=== PATIENT | male | born 1970 | race Caucasian/White ===

== ENCOUNTER → 2017-12-06 08:11 | Outpatient (CLI) | payer OTHER, SELFPAY ==
[2017-12-06 13:02] LABS: Absolute Lymphocyte Count 2.67 X10^3/ul (0.83-4.51); Absolute Neutrophil Count 3.5 X10^3/uL (2.0-7.7); Basophil# 0.05 X10^3/uL; Basophil% 0.7 % (0-1); Eosinophil# 0.18 X10^3/uL; Eosinophils% 2.6 % (0-5); Hematocrit 49.9 % (40-54); Hemoglobin 16.5 g/dl (13.0-16.5); Lymphocyte # 2.67 X10^3/ul (4.0); Mean Corp Hgb Conc 33.1 g/gl (32-36); Mean Corpuscular Hgb 32.7 pg (27.0-32.0); Mean Platelet Vol. 10.2 fl (6.2-12.0); Monocyte# 0.58 X10^3/uL; Monocyte% 8.3 % (0-10); Neutrophil # 3.54 X10^3/uL (2.7-7.7); Neutrophil % 50.3 % (47-70); Platelet Count 220 K/mm3 (150-450); RBC Distribution Width CV 13.7 % (11.6-14.6); RBC Distribution Width SD 49.3 fl (35.1-43.9); Red Blood Count 5.04 M/mm3 (4.6-6.2)
[2017-12-06 13:05] LABS: POSITIVE COUNT NO; POSITIVE DIFFERENTIAL NO; POSITIVE MORPHOLOGY NO
[2017-12-06 14:36] LABS: AST(SGOT) 29 U/L (15-37); Alanine Aminotransfer ALT/SGPT 54 U/L (16-61); Albumin, Serum 4.1 g/dL (3.2-5.0); Alkaline Phosphatase 59 U/L (45-117); Anion Gap 8 (5-15); BUN 12 mg/dL (7-18); BUN/Creat Ratio 10.7 RATIO (10-20); Calcium,Total 8.9 mg/dL (8.5-10.1); Chloride 104 mmol/L (98-107); Cholesterol 143 mg/dL (200); Creatinine, Serum 1.12 mg/dL (0.70-1.30); EST Glomerular Filtration Rate 75 mL/min (>60); Est Glom Filt Rate - Afr Amer 91 mL/min (>60); Glucose 96 mg/dL (74-106); High Density Lipoprotein 29 mg/dL; Potassium 3.7 mmol/L (3.5-5.1); Prolactin 5.4 ng/mL; Protein, Total 8.1 g/dL (6.4-8.2); Sodium Level 140 mmol/L (136-145); Thyroid Stim Hormone (TSH) 6.66 uIU/mL (0.358-3.74); Triglycerides 166 mg/dL; Very Low Density Lipoprotein 33 mg/dL (5-40)
[2017-12-10 09:38] LABS: Testosterone, % Free 1.94 % (1.50-4.20); Testosterone, Free 5.63 ng/dL (5.00-21.00)
[2017-12-10 11:07] LABS: Testosterone, Total 290 ng/dL (264-916); Transferrin 258 mg/dL (200-370)
== END ==
PROVIDERS: Family Provider Family Medicine; PCP Family Medicine; Visit Provider Family Medicine
DX: I10 Essential (primary) hypertension (principal); E29.1 Testicular hypofunction; E03.9 Hypothyroidism, unspecified
CPT/HCPCS: 36415; 80053; 80061; 84146; 84402; 84403; 84439; 84443; 84466; 85025

== ENCOUNTER → 2018-02-23 09:51 | Outpatient (CLI) | payer OTHER, SELFPAY ==
[2018-02-23 13:01] LABS: T4 Free Direct 1.41 ng/dL (0.76-1.46); Thyroid Stim Hormone (TSH) 2.02 uIU/mL (0.358-3.74)
== END ==
PROVIDERS: Family Provider Family Medicine; PCP Family Medicine; Visit Provider Family Medicine
DX: E03.9 Hypothyroidism, unspecified (principal)
CPT/HCPCS: 36415; 84439; 84443

== ENCOUNTER 2018-03-15 06:24 | Day surgery (SDC) | payer OTHER, SELFPAY ==
--- NOTE | 2018-03-11 08:00 | SOF_PTH ---
PATIENT: STUART VILLAVICENCIO LOC: [facility] [place] U#:[id number] AGE/SX: 47/M ROOM: RE03/15/[address]: Dr. Noé Coy MD : 1970 BED: DIS: 03/15/2018 SPEC #: [id number] RECD: 03/15/18 11:08 STATUS: NASIM MIRANDA #: [id number] JACKIE: 03/11/18 08:[address]: Noé Coy DEPT: SURGICAL PATHOLOGY RECD BY: Casimiro Kim ENTERED: 03/15/18 13:08 SP TYPE: SOFT TISS OTHR DR: Dr. Devan Alba, DO Tissues: A - Soft tissues, NOS B - Soft tissues, NOS C - Soft tissues, NOS D - Soft tissues, NOS Procedures: Surgery Specimen Level IV HEADER OPERATION: Excision painful soft tissue masses right posterior neck PRE-OP DIAGNOSIS: Painful soft tissue masses left lateral back; right posterior neck; left posterior auricular; left posterior neck TISSUE SUBMITTED: A ? Soft tissue mass right lateral back, B ? Soft tissue mass left posterior auricular, C - Soft tissue mass right posterior neck, D - Soft tissue mass left posterior neck MICROSCOPIC DIAGNOSIS A. 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 B. Soft tissue mass left posterior auricular, excision: Consistent with spindle cell lipoma. C. Soft tissue mass right posterior neck, excision: Consistent with spindle cell/pleomorphic lipoma. D. Soft tissue mass left posterior neck, excision: Mature adipose tissue, consistent with lipoma. SJ:timothy 03/16/18 COMMENT Please make reference to previous specimen ([id number]), A ? right posterior neck soft tissue mass with diagnosis of consistent with lipoma, B ? upper mid back soft tissue mass, biopsy with diagnosis of consistent with fibrolipoma, C ? left postauricular area soft tissue mass, biopsy with diagnosis of consistent with spindle cell lipoma, D ? left shoulder soft tissue mass, biopsy with diagnosis of consistent with spindle cell lipoma and E ? right shoulder soft tissue mass cluster x2, biopsy with diagnosis of spindle cell lipoma. Case has been reviewed in consultation with Dr. Holley who concurs with the above diagnosis. IDC:AM MICROSCOPIC DESCRIPTION Slides are reviewed. GROSS DESCRIPTION A - Received in fixative is one container labeled with the patient's name and designated soft tissue mass right lateral back. The specimen consists of two pieces of yellow adipose tissue measuring 4.5 x 3 x 2 cm and 2 x 2 x 1 cm. Sections reveal yellow adipose cut surfaces mixed with focal fibrous area without area of hemorrhage, necrosis and cystic degeneration. Hygiene Assistant sections are submitted in five cassettes as follows: 1 ? smaller piece, 2-5 ? larger piece. B - Received in fixative is one container labeled with the patient's name and designated soft tissue mass left posterior auricle. The specimen consists of two pieces of yellow adipose tissue measuring 2.5 x 2 x 2 cm and 1.5 x 1 x 0.3 cm. Sections reveal yellow adipose cut surfaces without area of hemorrhage, necrosis or cystic degeneration. The entire specimen is submitted in two cassettes. C - Received in fixative is one container labeled with the patient's name and designated soft tissue mass right posterior neck. The specimen consists of multiple pieces of yellow adipose tissue measuring in aggregate 14 x 11 x 4 cm. Sections reveal yellow adipose cut surfaces mixed with focal fibrous area without area of hemorrhage, necrosis or cystic degeneration. Hygiene Assistant sections are submitted in six cassettes. D - Received in fixative is one container labeled with the patient's name and designated soft tissue mass left posterior neck. The specimen consists of a lobulated piece of yellow adipose tissue measuring 10 x 6 x 3.5 cm. The external surface is inked. Sections reveal yellow adipose cut surfaces without areas of hemorrhage, necrosis or cystic degeneration. Hygiene Assistant sections are submitted in four cassettes. / SJ:timothy 03/15/18 TC:1 CPT: 18513 x4
[2018-03-15] VITALS (7 sets, daily range): BP systolic 90–150; BP diastolic 23–86; PULSE 68–100; RESP 16–20; TEMP 35.5–36.6; O2SAT 93–99; BMI 40.9
--- NOTE | 2018-03-15 07:41 | PCM.HP.BLA ---
History and Physical Date of Admission: 03/15/18 HISTORY OF PRESENT ILLNESS This is a 47-year-old gentleman who presents with painful soft tissue masses on his right lower lateral back, his posterior neck, and his chest wall that have increased in size over the last several months. He denies any trauma to these areas. He denies any fever. He denies any bleeding. He denies any recent infection. He presents at this time for further evaluation and treatment regarding these enlarging, painful, soft tissue masses. He had some painful soft tissue masses excised from his upper midback by the posterior neck, right shoulder, left shoulder, right posterior neck, and left postauricular area in 11/16. PAST MEDICAL HISTORY Gallstones High BP Arthritis Cdiff colitis. 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 Painful lipoma right posterior neck. Painful spindle cell lipoma left postauricular area. PAST SURGICAL HISTORY Knee Surgery 1985 Gallbladder 2009 Excision 3 cm painful soft tissue mass left postauricular area and excision 3 cm painful soft tissue mass right posterior neck and excision 2 cm painful soft tissue mass left shoulder and excision 2 cm painful soft tissue mass cluster x2 right shoulder and excision 1 cm painful soft tissue mass upper midback by posterior neck - 11/10/12 MEDICATIONS Amlodipine. HCTZ. Lisinopril. Niacin. ALLERGIES Penicillin. Cleocin. FAMILY HISTORY Father - Heart Disease and Hypertension and High Cholesterol. Mother - Hypertension. Negative for skin cancer. SOCIAL HISTORY Patient has never smoked. Alcohol Use - yes patient does not use aspirin. Patient does not use ibuprofen. REVIEW OF SYSTEMS General - Denies fever, fatigue, and weight loss. Eyes - Denies eye pain. Patient denies glaucoma. Patient denies cataracts. ENT - Denies nasal congestion and sore throat. Patient has chronic sinus problems. CV - Denies chest pain or discomfort, fatigue, lightheadedness, and shortness of breath with exertion. Patient has hypertension. Resp - Denies cough and shortness of breath. GI - Denies nausea, vomiting, diarrhea, and constipation. - Denies hematuria and urinary frequency. MS - Denies joint pain, back pain, stiffness, muscle weakness. Has arthritis. Derm - Denies skin cancer. The patient has painful enlarging soft tissue masses on his left posterior neck, right posterior neck, right lower lateral back, left chest wall, and right chest wall. Neuro - Denies poor balance, headaches, and weakness. Psych - Denies anxiety and depression. Endo - Denies excessive urination and excessive thirst. Heme - Denies abnormal bruising and bleeding. PHYSICAL EXAMINATION General - well developed, well nourished, in no acute distress. HEENT - PERRL/EOM intact. Throat clear. Neck - no thyromegaly, or abnormal cervical nodes. On the right posterior neck is a 9 cm soft tissue mass. It is tender to palpation. It is mobile. There is no ulceration. There is no evidence of infection. On the left posterior neck is a 6 cm soft tissue mass. It is tender to palpation. It is mobile. There is no ulceration. There is no evidence of infection. On the left postauricular/posterior neck area is a 3 cm soft tissue mass. It is tender to palpation. It is mobile. There is no ulceration. Chest wall - On the left chest wall is a 4 cm soft tissue mass. Mild tenderness to palpation. It is mobile. There is no ulceration. No evidence of infection. On the right chest wall is a 4 cm soft tissue mass. Mild tenderness to palpation. It is mobile. No ulceration. No evidence of infection. Lungs - clear bilaterally to auscultation. Heart - Regular rate and rhythm. Msk - On the right lower lateral back is a 6 cm soft tissue mass. It is mobile. It is tender to palpation. No evidence of ulceration. No evidence of infection. Pulses - Radial pulses are palpable. Extremities - no clubbing, cyanosis, edema, or deformity noted with normal full range of motion of all joints. Neurologic -cranial nerves II-XII grossly intact. Skin - No rashes. Cervical Nodes - no significant adenopathy. Axillary Nodes - no significant adenopathy. Psych - alert and cooperative; normal mood and affect; normal attention span and concentration ASSESSMENT 1. 9 cm painful recurrent soft tissue mass right posterior neck. 2. 6 cm painful soft tissue mass left posterior neck. 3. 6 cm painful soft tissue mass right lower lateral back. 4. 3 cm painful soft tissue mass left postauricular/posterior neck area. 5. 4 cm painful soft tissue mass left chest wall. 6. 4 cm painful soft tissue mass right chest wall. PLAN I recommend excision of this painful soft tissue mass, which we can do on an outpatient basis under general anesthesia. We will send the tissue to pathology for analysis to rule out carcinoma. Will excise these soft tissue masses in stages. I don't want to be turning the patient during the surgery which can increase risk for bleeding issues which would lengthen the procedure. So will do the lower lateral back and posterior neck soft tissue masses first. After healing has occurred, can proceed with excising the soft tissue masses on his chest wall. The patient was informed of the risks and complications of the procedure including alternatives to surgery. These were discussed with him personally. He voices understanding and wishes to proceed. Some of the risks and complications were included in a form from the [employer]. Depending on the size of the defect after the excision, a drain may be necessary.
[2018-03-15] MEDS: levoFLOXacin IV 500 MG/100 ML BAG 100 MG IV (08:13)
--- NOTE | 2018-03-15 10:19 | PCM.IMDPSTOP ---
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 Pre-Operative Diagnosis: 1. 9 cm painful recurrent soft tissue mass right posterior neck. 2. 6 cm painful soft tissue mass left posterior neck. 3. 6 cm painful soft tissue mass right lower lateral back. 4. 3 cm painful soft tissue mass left postauricular/posterior neck area. Post-Operative Diagnosis: Same. Surgery/Procedure Performed:: 1. Excision 9 cm painful recurrent soft tissue mass right posterior neck with 6.5 cm layered closure. 2. Excision 6 cm painful soft tissue mass left posterior neck with 5 cm layered closure. 3. Excision 6 cm painful soft tissue mass right lower lateral back with 5.5 cm layered closure. 4. Excision 3 cm painful soft tissue mass left postauricular/posterior neck area with 2.5 cm layered closure. Description of Surgical Findings:: This is a 47-year-old gentleman who presents with painful soft tissue masses on his right lower lateral back, his posterior neck, and his chest wall that have increased in size over the last several months. He denies any trauma to these areas. He denies any fever. He denies any bleeding. He denies any recent infection. He presents at this time for further evaluation and treatment regarding these enlarging, painful, soft tissue masses. He had some painful soft tissue masses excised from his upper midback by the posterior neck, right shoulder, left shoulder, right posterior neck, and left postauricular area in 11/16. Today the patient underwent excision 9 cm painful recurrent soft tissue mass right posterior neck with 6.5 cm layered closure and excision 6 cm painful soft tissue mass left posterior neck with 5 cm layered closure and excision 6 cm painful soft tissue mass right lower lateral back with 5.5 cm layered closure and excision 3 cm painful soft tissue mass left postauricular/posterior neck area with 2.5 cm layered closure. I used Marleni absorbable hemostat (I used 2 vials). Reference Number - [id number]. Lot Number - [id number]. Expiration - December 01, 2022. Estimated Blood Loss: 200 ml. Specimen's removed: 1. Painful recurrent soft tissue mass right posterior neck to Pathology. 2. Painful soft tissue mass left posterior neck to Pathology. 3. Painful soft tissue mass right lower lateral back to Pathology. 4. Painful soft tissue mass left postauricular/posterior neck area to Pathology. Drains: Niraj. Type of Anesthesia:: General - Admit VTE Documentation VTE Present on Admission: No VTE Mechan Device Prophylaxis: SCD's VTE Pharm Prophylaxis ordered?: No
[2018-03-15] MEDS: Mupirocin Ointment 22gm Tube 1 APPLIC (10:26)
--- NOTE | 2018-03-15 10:28 | OP.PN_ITS ---
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 Pre-Operative Diagnosis: 1. 9 cm painful recurrent soft tissue mass right posterior neck. 2. 6 cm painful soft tissue mass left posterior neck. 3. 6 cm painful soft tissue mass right lower lateral back. 4. 3 cm painful soft tissue mass left postauricular/posterior neck area. Post-Operative Diagnosis: Same. Surgery/Procedure Performed:: 1. Excision 9 cm painful recurrent soft tissue mass right posterior neck with 6.5 cm layered closure. 2. Excision 6 cm painful soft tissue mass left posterior neck with 5 cm layered closure. 3. Excision 6 cm painful soft tissue mass right lower lateral back with 5.5 cm layered closure. 4. Excision 3 cm painful soft tissue mass left postauricular/ posterior neck area with 2.5 cm layered closure. Description of Surgical Findings:: This is a 47-year-old gentleman who presents with painful soft tissue masses on his right lower lateral back, his posterior neck, and his chest wall that have increased in size over the last several months. He denies any trauma to these areas. He denies any fever. He denies any bleeding. He denies any recent infection. He presents at this time for further evaluation and treatment regarding these enlarging, painful, soft tissue masses. He had some painful soft tissue masses excised from his upper midback by the posterior neck, right shoulder, left shoulder, right posterior neck, and left postauricular area in . Today the patient underwent excision 9 cm painful recurrent soft tissue mass right posterior neck with 6.5 cm layered closure and excision 6 cm painful soft tissue mass left posterior neck with 5 cm layered closure and excision 6 cm painful soft tissue mass right lower lateral back with 5.5 cm layered closure and excision 3 cm painful soft tissue mass left postauricular/posterior neck area with 2.5 cm layered closure. I used Marleni absorbable hemostat (I used 2 vials). Reference Number - [id number]. Lot Number - [id number]. Expiration - December 01, 2022. Estimated Blood Loss: 200 ml. Specimen's removed: 1. Painful recurrent soft tissue mass right posterior neck to Pathology. 2. Painful soft tissue mass left posterior neck to Pathology. 3. Painful soft tissue mass right lower lateral back to Pathology. 4. Painful soft tissue mass left postauricular/posterior neck area to Pathology. Drains: Niraj. Type of Anesthesia:: General - Admit VTE Documentation VTE Present on Admission: No VTE Mechan Device Prophylaxis: SCD's VTE Pharm Prophylaxis ordered?: No
--- NOTE | 2018-03-15 10:32 | PCM.DC ---
You will use the following diet at home:: No restrictions Discharge Activity: May not drive while taking narcotic pain medications., May Not Shower - until drain is removed., - - no heavy lifting. head elevated. Return to work on:: 03/29/18 - tentative May shower in (days): 7 - after drain is removed in the office. May resume sexual activity in: 10-14 days Weight Bearing Status: Weight bearing as tolerated Keep extremity elevated above heart level: - - elevate head. Call your doctor if your incision/area has: Continuous Slow Oozing, Sudden Increased Bleeding, Increased Pain/ Swelling, Increased Redness, Foul Smelling Discharge, Swelling at the incision site Call your doctor if you observe: Fever of 101 or Higher, Coldness, Increased Pain, Shortness of breath, Chest pain, Calf discomfort, Uncontrolled pain Suture Line Care: - - after dressing removed in two days, apply antibiotic ointment to suture line daily. Change Dressing in (Days):: 2 - then dry dressings daily Cleanse incision/area with: - - may get incisions wet in the shower after the drain is removed in the office. Drain: Suction - zara drain to bulb suction. empty and record output daily. Allergies/Adverse Reactions: Allergies Penicillins Allergy (Severe, Verified 11/03/17 08:52) critical clindamycin [From Cleocin] Adverse Reaction (Intermediate, Verified 01/31/18 13:07) colitis Medications to take at Discharge amlodipine 5 mg tablet 5 mg PO QDAY 11/02/17 hydrochlorothiazide 12.5 mg tablet 12.5 mg PO QDAY 11/02/17 lisinopril 20 mg tablet 20 mg PO BID tab 11/02/17 niacin 500 mg tablet 500 mg PO QDAY 11/02/17 Diazepam [Valium] 5 mg PO 4X/DAY PRN PRN #20 tab 03/15/18 Oxycodone HCl/Acetaminophen [Percocet 5/325] 1 - 2 tab PO 4X/DAY PRN PRN 5 Days #40 tab 03/15/18 Thyroxine 100 meq PO DAILY 03/15/18 levoFLOXacin tablet [Levaquin tablet] 500 mg PO DAILY #10 tab 03/15/18 The following prescriptions were given: Diazepam [Valium] 5 mg PO 4X/DAY PRN PRN #20 tab PRN Reason: Spasms levoFLOXacin tablet [Levaquin tablet] 500 mg PO DAILY #10 tab Oxycodone HCl/Acetaminophen [Percocet 5/325] 1 - 2 tab PO 4X/DAY PRN PRN 5 Days #40 tab PRN Reason: Pain Primary Care Physician: Devan Alba DO [Primary Care Provider] - Please Follow Up With: Noé Coy MD When: one week. call [phone] for appt. Proposed Discharge Date: 03/15/18
--- NOTE | 2018-03-15 10:36 | DCINST_ITS ---
You will use the following diet at home:: No restrictions Discharge Activity: May not drive while taking narcotic pain medications., May Not Shower - until drain is removed., - - no heavy lifting. head elevated. Return to work on:: 03/29/18 - tentative May shower in (days): 7 - after drain is removed in the office. May resume sexual activity in: 10-14 days Weight Bearing Status: Weight bearing as tolerated Keep extremity elevated above heart level: - - elevate head. Call your doctor if your incision/area has: Continuous Slow Oozing, Sudden Increased Bleeding, Increased Pain/ Swelling, Increased Redness, Foul Smelling Discharge, Swelling at the incision site Call your doctor if you observe: Fever of 101 or Higher, Coldness, Increased Pain, Shortness of breath, Chest pain, Calf discomfort, Uncontrolled pain Suture Line Care: - - after dressing removed in two days, apply antibiotic ointment to suture line daily. Change Dressing in (Days):: 2 - then dry dressings daily Cleanse incision/area with: - - may get incisions wet in the shower after the drain is removed in the office. Drain: Suction - zara drain to bulb suction. empty and record output daily. Allergies/Adverse Reactions: Allergies Penicillins Allergy (Severe, Verified 11/03/17 08:52) critical clindamycin [From Cleocin] Adverse Reaction (Intermediate, Verified 01/31/18 13: 07) colitis Medications to take at Discharge amlodipine 5 mg tablet 5 mg PO QDAY 11/02/17 hydrochlorothiazide 12.5 mg tablet 12.5 mg PO QDAY 11/02/17 lisinopril 20 mg tablet 20 mg PO BID tab 11/02/17 niacin 500 mg tablet 500 mg PO QDAY 11/02/17 Diazepam [Valium] 5 mg PO 4X/DAY PRN PRN #20 tab 03/15/18 Oxycodone HCl/Acetaminophen [Percocet 5/325] 1 - 2 tab PO 4X/DAY PRN PRN 5 Days #40 tab 03/15/18 Thyroxine 100 meq PO DAILY 03/15/18 levoFLOXacin tablet [Levaquin tablet] 500 mg PO DAILY #10 tab 03/15/18 The following prescriptions were given: Diazepam [Valium] 5 mg PO 4X/DAY PRN PRN #20 tab PRN Reason: Spasms levoFLOXacin tablet [Levaquin tablet] 500 mg PO DAILY #10 tab Oxycodone HCl/Acetaminophen [Percocet 5/325] 1 - 2 tab PO 4X/DAY PRN PRN 5 Days #40 tab PRN Reason: Pain Primary Care Physician: Devan Alba DO [Primary Care Provider] - Please Follow Up With: Noé Coy MD When: one week. call [phone] for appt. Proposed Discharge Date: 03/15/18
--- NOTE | 2018-03-15 19:24 | PCM.OPRPT ---
Report of Operation Date of Procedure: 03/15/18 Pre-Operative Diagnosis: 1. 9 cm painful recurrent soft tissue mass right posterior neck. 2. 6 cm painful soft tissue mass left posterior neck. 3. 6 cm painful soft tissue mass right lower lateral back. 4. 3 cm painful soft tissue mass left postauricular/posterior neck area. Post-Operative Diagnosis: Same. Surgery/Procedure Performed:: 1. Excision 9 cm painful recurrent soft tissue mass right posterior neck with 6.5 cm layered closure. 2. Excision 6 cm painful soft tissue mass left posterior neck with 5 cm layered closure. 3. Excision 6 cm painful soft tissue mass right lower lateral back with 5.5 cm layered closure. 4. Excision 3 cm painful soft tissue mass left postauricular/posterior neck area with 2.5 cm layered closure. Description of Surgical Findings:: This is a 47-year-old gentleman who presents with painful soft tissue masses on his right lower lateral back, his posterior neck, and his chest wall that have increased in size over the last several months. He denies any trauma to these areas. He denies any fever. He denies any bleeding. He denies any recent infection. He presents at this time for further evaluation and treatment regarding these enlarging, painful, soft tissue masses. He had some painful soft tissue masses excised from his upper midback by the posterior neck, right shoulder, left shoulder, right posterior neck, and left postauricular area in 11/16. The patient was informed of the risks and complications of the procedure including alternatives to surgery. These were discussed with him personally. He voices understanding and wishes to proceed. Some of the risks and complications were included in a form from the [employer]. I used Marleni absorbable hemostat (I used 2 vials). Reference Number - [id number]. Lot Number - [id number]. Expiration - December 01, 2022. electronic data interchange specialist: Mirella Posadas. Type of Anesthesia:: General Specimen's removed: 1. Painful recurrent soft tissue mass right posterior neck to Pathology. 2. Painful soft tissue mass left posterior neck to Pathology. 3. Painful soft tissue mass right lower lateral back to Pathology. 4. Painful soft tissue mass left postauricular/posterior neck area to Pathology. Drains: Niraj. Estimated Blood Loss (mL): 200 ml. Description of Procedure: Patient was taken to OR in supine position and was placed under general anesthesia. He was then placed in the prone position and his posterior neck and back were prepped and draped in the usual fashion. SCD's were placed for DVT prophylaxis. Perioperative antibiotics were given intravenously. Using xylocaine with epinephrine, these areas (right posterior neck, left posterior neck, left postauricular area, and right lower lateral back) were infiltrated. After waiting 5 minutes for the anesthetic to take effect, incisions were made and these soft tissue masses were dissected free. There was a lot of scar tissue present. The ones on the posterior neck were adherent to the underlying muscle. A fair amount of bleeding was seen and hemostasis was obtained with electrocautery. After removing all four of these soft tissue masses, they were sent to Pathology for analysis to rule out carcinoma. The wounds were irrigated with saline. Hemostasis obtained with electrocautery. Due to the extensive dissection on the posterior neck, a size 15 Niraj drain was placed through a separate stab incision inferiorly and secured to the skin with 3-0 Nylon suture. I sprayed Marleni absorbable hemostat into the posterior neck wounds and postauricular wound to help minimize seroma formation. The wounds were then closed in multiple layers with 3-0 Monocryl interrupted sutures for the deep dermis and subcutaneous tissue. The skin was approximated with 3-0 Prolene vertical mattress interrupted sutures and simple interrupted sutures. The size of the layered closure repairs were 6.5 cm for the right posterior neck, 5 cm for the left posterior neck, 5.5 cm for the right lower lateral back, and 2.5 cm for the left postauricular/posterior neck area. Antibiotic ointment was applied to the incisions followed by compression gauze dressing. Patient tolerated the procedure well and was sent to PACU in satisfactory condition. He will be sent home on antibiotics and pain medication. He will followup in the office in a week for removal of the drain. The sutures will be removed in two weeks. Grafts/Implants Used: None. - Complications None. - Admit VTE Documentation VTE Present on Admission: No VTE Mechan Device Prophylaxis: SCD's VTE Pharm Prophylaxis ordered?: No Code Visit Surgery Charges CPT - 81154 ICD-10 - R22.1, D17.0 61117-51 R22.1, D17.0 17455-39 R22.1, D17.0 75621-87 R22.2, D17.1
--- NOTE | 2018-03-16 17:24 | OP.PCM_ITS ---
Report of Operation Date of Procedure: 03/15/18 Pre-Operative Diagnosis: 1. 9 cm painful recurrent soft tissue mass right posterior neck. 2. 6 cm painful soft tissue mass left posterior neck. 3. 6 cm painful soft tissue mass right lower lateral back. 4. 3 cm painful soft tissue mass left postauricular/posterior neck area. Post-Operative Diagnosis: Same. Surgery/Procedure Performed:: 1. Excision 9 cm painful recurrent soft tissue mass right posterior neck with 6.5 cm layered closure. 2. Excision 6 cm painful soft tissue mass left posterior neck with 5 cm layered closure. 3. Excision 6 cm painful soft tissue mass right lower lateral back with 5.5 cm layered closure. 4. Excision 3 cm painful soft tissue mass left postauricular/ posterior neck area with 2.5 cm layered closure. Description of Surgical Findings:: This is a 47-year-old gentleman who presents with painful soft tissue masses on his right lower lateral back, his posterior neck, and his chest wall that have increased in size over the last several months. He denies any trauma to these areas. He denies any fever. He denies any bleeding. He denies any recent infection. He presents at this time for further evaluation and treatment regarding these enlarging, painful, soft tissue masses. He had some painful soft tissue masses excised from his upper midback by the posterior neck, right shoulder, left shoulder, right posterior neck, and left postauricular area in . The patient was informed of the risks and complications of the procedure including alternatives to surgery. These were discussed with him personally. He voices understanding and wishes to proceed. Some of the risks and complications were included in a form from the [employer]. I used Marleni absorbable hemostat (I used 2 vials). Reference Number - [id number]. Lot Number - [id number]. Expiration - December 01, 2022. gallery or museum guide: Mirella Posadas. Type of Anesthesia:: General Specimen's removed: 1. Painful recurrent soft tissue mass right posterior neck to Pathology. 2. Painful soft tissue mass left posterior neck to Pathology. 3. Painful soft tissue mass right lower lateral back to Pathology. 4. Painful soft tissue mass left postauricular/posterior neck area to Pathology. Drains: Niraj. Estimated Blood Loss (mL): 200 ml. Description of Procedure: Patient was taken to OR in supine position and was placed under general anesthesia. He was then placed in the prone position and his posterior neck and back were prepped and draped in the usual fashion. SCD's were placed for DVT prophylaxis. Perioperative antibiotics were given intravenously. Using xylocaine with epinephrine, these areas (right posterior neck, left posterior neck, left postauricular area, and right lower lateral back) were infiltrated. After waiting 5 minutes for the anesthetic to take effect, incisions were made and these soft tissue masses were dissected free. There was a lot of scar tissue present. The ones on the posterior neck were adherent to the underlying muscle. A fair amount of bleeding was seen and hemostasis was obtained with electrocautery. After removing all four of these soft tissue masses, they were sent to Pathology for analysis to rule out carcinoma. The wounds were irrigated with saline. Hemostasis obtained with electrocautery. Due to the extensive dissection on the posterior neck, a size 15 Niraj drain was placed through a separate stab incision inferiorly and secured to the skin with 3-0 Nylon suture. I sprayed Marleni absorbable hemostat into the posterior neck wounds and postauricular wound to help minimize seroma formation. The wounds were then closed in multiple layers with 3-0 Monocryl interrupted sutures for the deep dermis and subcutaneous tissue. The skin was approximated with 3-0 Prolene vertical mattress interrupted sutures and simple interrupted sutures. The size of the layered closure repairs were 6.5 cm for the right posterior neck , 5 cm for the left posterior neck, 5.5 cm for the right lower lateral back, and 2.5 cm for the left postauricular/posterior neck area. Antibiotic ointment was applied to the incisions followed by compression gauze dressing. Patient tolerated the procedure well and was sent to PACU in satisfactory condition. He will be sent home on antibiotics and pain medication. He will followup in the office in a week for removal of the drain. The sutures will be removed in two weeks. Grafts/Implants Used: None. - Complications None. - Admit VTE Documentation VTE Present on Admission: No VTE Mechan Device Prophylaxis: SCD's VTE Pharm Prophylaxis ordered?: No Code Visit Surgery Charges CPT - 51145 ICD-10 - R22.1, D17.0 55116-47 R22.1, D17.0 13957-34 R22.1, D17.0 04525-71 R22.2, D17.1
== END 2018-03-15 13:00 | disposition home or self-care (01) ==
LOC: SDC 06:27 → AC 06:27
PROVIDERS: Family Provider Family Medicine; PCP Family Medicine; Visit Provider Surgery
PROC: (CPT 21552; principal; 2018-03-15 07:45)
DX: D17.1 Benign lipomatous neoplasm of skin and subcutaneous tissue of trunk (principal); D17.0 Benign lipomatous neoplasm of skin and subcutaneous tissue of head, face and neck; D17.21 Benign lipomatous neoplasm of skin and subcutaneous tissue of right arm; D17.22 Benign lipomatous neoplasm of skin and subcutaneous tissue of left arm; M19.90 Unspecified osteoarthritis, unspecified site
CPT/HCPCS: 00300; 21552; 21554; 21931; 88305; J7120; J2405

== ENCOUNTER → 2019-03-28 | Outpatient (CLI) | payer OTHER, SELFPAY ==
[2019-03-28 15:35] LABS: AST(SGOT) 34 U/L (15-37); Alanine Aminotransfer ALT/SGPT 54 U/L (16-61); Albumin, Serum 3.7 g/dL (3.2-5.0); Alkaline Phosphatase 59 U/L (45-117); Anion Gap 11 (5-15); BUN 13 mg/dL (7-18); Calcium,Total 8.7 mg/dL (8.5-10.1); Chloride 108 mmol/L (98-107); Creatinine, Serum 1.08 mg/dL (0.70-1.30); EST Glomerular Filtration Rate 78 mL/min (>60); Est Glom Filt Rate - Afr Amer 94 mL/min (>60); Globulin 3.6 g/dL (2.2-4.2); Glucose 109 mg/dL (74-106); Potassium 3.5 mmol/L (3.5-5.1); Protein, Total 7.3 g/dL (6.4-8.2); Sodium Level 144 mmol/L (136-145); T4 Free Direct 1.07 ng/dL (0.76-1.46); Thyroid Stim Hormone (TSH) 2.83 uIU/mL (0.358-3.74)
== END | disposition home or self-care (01) ==
LOC: BFHLAB 11:40
PROVIDERS: Family Provider Family Medicine; PCP Family Medicine; Visit Provider Family Medicine
DX: I10 Essential (primary) hypertension (principal); E03.9 Hypothyroidism, unspecified
CPT/HCPCS: 36415; 80053; 84439; 84443

== ENCOUNTER → 2020-04-01 | Outpatient (CLI) | payer OTHER, SELFPAY ==
[2018-05-04 11:26] VITALS: BMI 41.5
[2020-04-01 09:56] LABS: Absolute Lymphocyte Count 2.64 X10^3/uL (0.83-4.51); Absolute Neutrophil Count 4.4 X10^3/uL (2.0-7.7); Basophil# 0.07 X10^3/uL; Basophil% 0.9 % (0-1); Eosinophil# 0.23 X10^3/uL; Eosinophils% 2.9 % (0-5); Hematocrit 47.3 % (40-54); Hemoglobin 15.8 g/dL (13.0-16.5); Lymphocyte # 2.64 X10^3/ul (4.0); Lymphocyte % 33.1 % (19-41); Mean Corp Hgb Conc 33.4 g/dL (32-36); Mean Corpuscular Hgb 33.3 pg (27.0-32.0); Mean Corpuscular Volume 99.6 fL (80-94); Mean Platelet Vol. 10.2 fl (6.2-12.0); Monocyte# 0.62 X10^3/uL; Monocyte% 7.8 % (0-10); NRBC Flagged by Analyzer 0 % (0-5); Neutrophil # 4.39 X10^3/uL (2.7-7.7); Platelet Count 231 K/mm3 (150-450); RBC Distribution Width CV 13.2 % (11.6-14.6); RBC Distribution Width SD 48.8 fl (35.1-43.9); Red Blood Count 4.75 M/mm3 (4.6-6.2)
[2020-04-01 10:11] LABS: Hemoglobin A1c 5.7 % (3.8-5.6)
[2020-04-01 10:18] LABS: ALB/GLOB Ratio 1.1 RATIO (0.9-2.4); AST(SGOT) 33 U/L (15-37); Alanine Aminotransfer ALT/SGPT 57 U/L (16-61); Albumin, Serum 3.9 g/dL (3.2-5.0); Alkaline Phosphatase 54 U/L (45-117); Anion Gap 7 (5-15); BUN 15 mg/dL (7-18); Calcium,Total 9.4 mg/dL (8.5-10.1); Chloride 108 mmol/L (98-107); Cholesterol 145 mg/dL (200); Creatinine, Serum 0.94 mg/dL (0.70-1.30); EST Glomerular Filtration Rate 91 mL/min (>60); Est Glom Filt Rate - Afr Amer 110 mL/min (>60); Globulin 3.6 g/dL (2.2-4.2); Glucose 116 mg/dL (74-106); High Density Lipoprotein 28 mg/dL; Potassium 3.7 mmol/L (3.5-5.1); Protein, Total 7.5 g/dL (6.4-8.2); Sodium Level 139 mmol/L (136-145); T4 Free Direct 1.14 ng/dL (0.76-1.46); Thyroid Stim Hormone (TSH) 4.49 uIU/mL (0.358-3.74); Triglycerides 192 mg/dL; Very Low Density Lipoprotein 38 mg/dL (5-40)
== END | disposition home or self-care (01) ==
LOC: MTLAB 08:29
PROVIDERS: PCP Family Medicine; Referring Provider Family Medicine; Visit Provider Family Medicine
DX: Z00.00 Encounter for general adult medical examination without abnormal findings (principal); I10 Essential (primary) hypertension; E03.9 Hypothyroidism, unspecified; R73.01 Impaired fasting glucose
CPT/HCPCS: 36415; 80053; 80061; 83036; 84439; 84443; 85025

== ENCOUNTER → 2020-04-04 | Outpatient (CLI) | payer OTHER, SELFPAY ==
--- NOTE | 2020-04-04 06:48 | MRI_ITS ---
STUDY: MRI BRAIN WITH AND WITHOUT CONTRAST REASON FOR EXAM: Male, 49 years old. family h/o aneurysm, no complaints PRIOR MRA 2003 TECHNIQUE: Standardized multiplanar fat and water weighted pulse sequences were obtained. IV 30 cc dotarem was administered for the contrast portion of the examination. COMPARISON: None. FINDINGS: Normal size of the ventricles and extra-axial spaces for the patient''s age. Normal white matter tracts of the supratentorial brain. There is no evidence for recent intracranial ischemia or other cause of cytotoxic edema on diffusion weighted imaging (DWI). Normal T2* images of the brain without demonstrated susceptibility artifact. There is no demonstrated hemosiderin stain. Normal bilateral basal ganglia. Normal thalami. There is no extra-axial fluid accumulation. Normal flow voids within the major intracranial circulation suggesting patency by spin echo criteria. Normal venous enhancement. There is no enhancing intra-axial or extra-axial abnormality. Normal sella turcica, pituitary gland, infundibular stalk, optic chiasm and hypothalamus. Normal tectal plate and pineal gland. Normal midbrain, ketty and medulla. Normal cerebellum. Normal basal cisterns. 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 Normal bilateral internal auditory canals. No demonstrated orbital abnormality, within the constraints of a routine brain study. Mucosal thickening of the right maxilla sinus consistent with chronic sinusitis. Normal calvarium and skull base. Normal visualized soft tissue structures. Normal visualized upper cervical spine. MRI/Brain W/WO Contrast IMPRESSION: Normal unenhanced and enhanced MRI of the brain. Electronically Signed: Keshav Veliz MD at 10:16 EDT Tel , Service support ,
== END | disposition home or self-care (01) ==
LOC: MRI 06:33
PROVIDERS: PCP Family Medicine; Referring Provider Family Medicine; Visit Provider Family Medicine
DX: Z82.49 Family history of ischemic heart disease and other diseases of the circulatory system (principal)
CPT/HCPCS: 70553; A9575

== ENCOUNTER → 2020-06-25 | Outpatient (CLI) | payer OTHER, SELFPAY ==
[2018-05-04 11:26] VITALS: BMI 41.5
[2020-06-25 12:30] LABS: Vitamin D,25 Hydroxy 24.7 ng/mL
[2020-06-25 12:37] LABS: T4 Free Direct 1.12 ng/dL (0.76-1.46); Thyroid Stim Hormone (TSH) 2.67 uIU/mL (0.358-3.74)
[2020-06-28 12:08] LABS: Testosterone, Free 6.53 ng/dL (5.00-21.00)
[2020-06-28 12:29] LABS: Testosterone, % Free 2.55 % (1.50-4.20); Testosterone, Total 256 ng/dL (264-916)
== END | disposition home or self-care (01) ==
LOC: BFHLAB 08:07
PROVIDERS: PCP Family Medicine; Visit Provider Family Medicine
DX: Z00.00 Encounter for general adult medical examination without abnormal findings (principal); I10 Essential (primary) hypertension; E03.9 Hypothyroidism, unspecified; R73.01 Impaired fasting glucose; N52.9 Male erectile dysfunction, unspecified; R53.83 Other fatigue
CPT/HCPCS: 36415; 82306; 84402; 84403; 84439; 84443

== ENCOUNTER → 2020-07-03 | Outpatient (CLI) | payer OTHER, SELFPAY ==
[2020-07-03 12:54] LABS: Vitamin D,25 Hydroxy 22.6 ng/mL
[2020-07-03 13:10] LABS: T4 Free Direct 1.37 ng/dL (0.76-1.46); Thyroid Stim Hormone (TSH) 3.38 uIU/mL (0.358-3.74)
[2020-07-07 20:07] LABS: Testosterone, Free 11.35 ng/dL (5.00-21.00)
[2020-07-08 11:38] LABS: Testosterone, % Free 3.81 % (1.50-4.20); Testosterone, Total 298 ng/dL (264-916)
== END | disposition home or self-care (01) ==
LOC: BFHLAB 09:46
PROVIDERS: PCP Family Medicine; Visit Provider Family Medicine
DX: E03.9 Hypothyroidism, unspecified (principal); N52.9 Male erectile dysfunction, unspecified; R53.83 Other fatigue
CPT/HCPCS: 36415; 82306; 84402; 84403; 84439; 84443

== ENCOUNTER 2020-10-15 09:00 | Outpatient (RCR) | payer OTHER, SELFPAY ==
[2018-05-04 11:26] VITALS: BMI 41.5
== END 2020-10-15 23:59 ==
LOC: IMMUN 09:00
PROVIDERS: PCP Family Medicine; Visit Provider Family Medicine
DX: Z23 Encounter for immunization (principal)
CPT/HCPCS: 0011A; 0012A; 91301

== ENCOUNTER → 2023-01-18 | Outpatient (CLI) | payer OTHER, SELFPAY ==
[2023-01-18 12:12] LABS: Absolute Lymphocyte Count 2.04 X10^3/uL (0.83-4.51); Absolute Neutrophil Count 3.8 X10^3/uL (2.0-7.7); Basophil# 0.07 X10^3/uL; Basophil% 1.1 % (0-1); Eosinophil# 0.17 X10^3/uL; Eosinophils% 2.6 % (0-5); Hematocrit 46.9 % (40-54); Hemoglobin 15.8 g/dL (13.0-16.5); Lymphocyte # 2.04 X10^3/ul (0.83-4.51); Lymphocyte % 31.1 % (19-41); Mean Corp Hgb Conc 33.7 g/dL (32-36); Mean Corpuscular Hgb 32.8 pg (27.0-32.0); Mean Corpuscular Volume 97.5 fL (80-94); Mean Platelet Vol. 10.4 fl (6.2-12.0); Monocyte# 0.49 X10^3/uL; Monocyte% 7.5 % (0-10); NRBC Flagged by Analyzer 0 % (0-5); Neutrophil # 3.77 X10^3/uL (2.7-7.7); Neutrophil % 57.4 % (47-70); Platelet Count 206 K/mm3 (150-450); RBC Distribution Width CV 13.6 % (11.6-14.6); RBC Distribution Width SD 49.7 fl (35.1-43.9); Red Blood Count 4.81 M/mm3 (4.6-6.2); White Blood Count 6.6 K/mm3 (4.4-11.0)
[2023-01-18 12:39] LABS: ALB/GLOB Ratio 1.1 RATIO (0.9-2.4); AST(SGOT) 47 U/L (15-37); Alanine Aminotransfer ALT/SGPT 71 U/L (16-61); Albumin, Serum 3.9 g/dL (3.2-5.0); Alkaline Phosphatase 60 U/L (45-117); Anion Gap 4 (5-15); BUN 13 mg/dL (7-18); BUN/Creat Ratio 13.3 RATIO (10-20); Calcium,Total 9.2 mg/dL (8.5-10.1); Chloride 108 mmol/L (98-107); Cholesterol 149 mg/dL (200); Creatinine, Serum 0.98 mg/dL (0.70-1.30); EST Glomerular Filtration Rate 86 mL/min (>60); Est Glom Filt Rate - Afr Amer 104 mL/min (>60); Globulin 3.4 g/dL (2.2-4.2); Glucose 162 mg/dL (74-106); High Density Lipoprotein 30 mg/dL; Potassium 3.6 mmol/L (3.5-5.1); Protein, Total 7.3 g/dL (6.4-8.2); Sodium Level 137 mmol/L (136-145); Thyroid Stim Hormone (TSH) 2.02 uIU/mL (0.358-3.74); Triglycerides 123 mg/dL; Very Low Density Lipoprotein 25 mg/dL (5-40)
[2023-01-18 13:06] LABS: Microalbumin,Random Urine 26.1 mg/L (NO RANGE EST.); Microalbumin:Creatinine Ratio 10.7 mg/g CRE (<30 mg/g CRE)
[2023-01-22 22:07] LABS: Testosterone, % Free 2.13 % (1.50-4.20); Testosterone, Free 5.03 ng/dL (5.00-21.00); Testosterone, Total 236 ng/dL (264-916)
== END | disposition home or self-care (01) ==
LOC: BFHLAB 09:30
PROVIDERS: PCP Family Medicine; Referring Provider Family Medicine; Visit Provider Family Medicine
DX: Z00.00 Encounter for general adult medical examination without abnormal findings (principal); E11.9 Type 2 diabetes mellitus without complications; E03.9 Hypothyroidism, unspecified; E29.1 Testicular hypofunction
CPT/HCPCS: 36415; 80053; 80061; 82043; 82570; 84402; 84403; 84443; 85025

== ENCOUNTER → 2023-04-20 | Outpatient (CLI) | payer OTHER, SELFPAY ==
[2023-04-20 13:00] LABS: AST(SGOT) 35 U/L (15-37); Alanine Aminotransfer ALT/SGPT 48 U/L (16-61); Albumin, Serum 3.7 g/dL (3.2-5.0); Alkaline Phosphatase 54 U/L (45-117); Bilirubin, Direct 0.19 mg/dL (0.00-0.30); Globulin 3.7 g/dL (2.2-4.2); Prolactin 9.1 ng/mL; Protein, Total 7.4 g/dL (6.4-8.2); Thyroid Stim Hormone (TSH) 2.54 uIU/mL (0.358-3.74)
[2023-04-24 17:09] LABS: LDL, Direct 120295 55 mg/dL (0-99); Testosterone, % Free 2.17 % (1.50-4.20); Testosterone, Free 4.51 ng/dL (5.00-21.00); Testosterone, Total 208 ng/dL (264-916); Transferrin 247 mg/dL (177-329)
== END | disposition home or self-care (01) ==
PROVIDERS: PCP Family Medicine; Referring Provider Family Medicine; Visit Provider Family Medicine
DX: E29.1 Testicular hypofunction (principal)
CPT/HCPCS: 36415; 80076; 83721; 84146; 84402; 84403; 84443; 84466

== ENCOUNTER → 2024-01-17 | Outpatient (CLI) | payer OTHER, SELFPAY ==
[2024-01-17 17:43] LABS: Absolute Lymphocyte Count 2.77 X10^3/uL (0.83-4.51); Absolute Neutrophil Count 4.7 X10^3/uL (2.0-7.7); Basophil# 0.09 X10^3/uL; Basophil% 1.1 % (0-1); Eosinophil# 0.19 X10^3/uL; Eosinophils% 2.2 % (0-5); Hematocrit 46.8 % (40-54); Hemoglobin 15.6 g/dL (13.0-16.5); Lymphocyte # 2.77 X10^3/ul (0.83-4.51); Lymphocyte % 32.6 % (19-41); Mean Corp Hgb Conc 33.3 g/dL (32-36); Mean Corpuscular Volume 95.9 fL (80-94); Mean Platelet Vol. 10.6 fl (6.2-12.0); Monocyte# 0.68 X10^3/uL; NRBC Flagged by Analyzer 0 % (0-5); Neutrophil # 4.73 X10^3/uL (2.7-7.7); Neutrophil % 55.7 % (47-70); Platelet Count 205 K/mm3 (150-450); RBC Distribution Width CV 13.3 % (11.6-14.6); RBC Distribution Width SD 47.2 fl (35.1-43.9); Red Blood Count 4.88 M/mm3 (4.6-6.2); White Blood Count 8.5 K/mm3 (4.4-11.0)
[2024-01-17 18:16] LABS: Hemoglobin A1c 9.9 % (3.8-5.6)
[2024-01-17 19:03] LABS: ALB/GLOB Ratio 1.4 RATIO (0.9-2.4); AST(SGOT) 53 U/L (15-37); Alanine Aminotransfer ALT/SGPT 59 U/L (16-61); Albumin, Serum 4.2 g/dL (3.2-5.0); Alkaline Phosphatase 72 U/L (45-117); Anion Gap 8 (5-15); BUN 14 mg/dL (7-18); Calcium,Total 9.2 mg/dL (8.5-10.1); Chloride 104 mmol/L (98-107); Cholesterol 107 mg/dL (200); Creatinine, Serum 0.88 mg/dL (0.70-1.30); EST Glomerular Filtration Rate 97 mL/min (>60); Est Glom Filt Rate - Afr Amer 117 mL/min (>60); Glucose 190 mg/dL (74-106); High Density Lipoprotein 30 mg/dL; Potassium 3.7 mmol/L (3.5-5.1); Protein, Total 7.2 g/dL (6.4-8.2); Sodium Level 139 mmol/L (136-145); T4 Free Direct 1.23 ng/dL (0.76-1.46); Thyroid Stim Hormone (TSH) 2.93 uIU/mL (0.358-3.74); Triglycerides 183 mg/dL; Very Low Density Lipoprotein 37 mg/dL (5-40)
== END | disposition home or self-care (01) ==
LOC: BFHLAB 16:29
PROVIDERS: PCP Family Medicine; Visit Provider Family Medicine
DX: Z00.00 Encounter for general adult medical examination without abnormal findings (principal); E11.9 Type 2 diabetes mellitus without complications; E03.9 Hypothyroidism, unspecified; Z12.5 Encounter for screening for malignant neoplasm of prostate
CPT/HCPCS: 36415; 80053; 80061; 83036; 84153; 84439; 84443; 85025; G0103

== ENCOUNTER → 2024-03-24 | Outpatient (CLI) | payer OTHER, SELFPAY ==
[2024-03-24 15:27] LABS: Color, Urine Yellow (Yellow); Glucose, Dipstick Normal (Normal); Ketone-Dipstick Negative (Negative); Leukocyte Esterase-Dipstick Negative /ul (Negative); Nitrite-Dipstick Negative (Negative); Occult Blood-Urine Negative /ul (Negative); Protein-Dipstick Negative (Negative); Urine Bilirubin Dipstick Negative (Negative); Urine Clarity Clear (Clear); Urine Urobilinogen Normal (Normal); Urine pH 6.5 (5.0 - 8.0)
[2024-03-24 16:03] LABS: Anion Gap 11 (5-15); BUN 25 mg/dL (7-18); BUN/Creat Ratio 18.1 RATIO (10-20); Calcium,Total 9.4 mg/dL (8.5-10.1); Chloride 103 mmol/L (98-107); Creatinine, Serum 1.38 mg/dL (0.70-1.30); EST Glomerular Filtration Rate 57 mL/min (>60); Est Glom Filt Rate - Afr Amer 69 mL/min (>60); Glucose 171 mg/dL (74-106); Potassium 3.2 mmol/L (3.5-5.1); Sodium Level 136 mmol/L (136-145)
[2024-03-24 16:05] LABS: Hemoglobin A1c 7.5 % (3.8-5.6)
== END | disposition home or self-care (01) ==
LOC: MTLAB 12:58
PROVIDERS: PCP Family Medicine; Referring Provider Family Medicine; Visit Provider Family Medicine
DX: E11.9 Type 2 diabetes mellitus without complications (principal); I10 Essential (primary) hypertension; R10.9 Unspecified abdominal pain
CPT/HCPCS: 36415; 80048; 81002; 83036

== ENCOUNTER → 2024-08-14 | Outpatient (CLI) | payer OTHER, SELFPAY | END | disposition home or self-care (01) | LOC: SL 20:04 | PROVIDERS: PCP Family Medicine; Referring Provider Family Medicine; Visit Provider Family Medicine | DX: G47.33 Obstructive sleep apnea (adult) (pediatric) (principal) | CPT/HCPCS: 95811 ==

== ENCOUNTER → 2024-10-10 | Outpatient (CLI) | payer OTHER, SELFPAY | END | disposition home or self-care (01) | LOC: SL 11:26 | PROVIDERS: PCP Family Medicine; Visit Provider Family Medicine | DX: Z00.00 Encounter for general adult medical examination without abnormal findings (principal) ==

== ENCOUNTER → 2024-12-22 | Outpatient (CLI) | payer OTHER, SELFPAY ==
--- NOTE | 2024-12-22 09:40 | STEWCON_ITS ---
Reason For Study Reason For Study: Abnormal EKG, Chest pain Stress Results Protocol: Stress Echocardiogram Mario Protocol with Definity Maximum Predicted HR: 167 bpm Target HR: 142 bpm % Maximum Predicted HR: 92 % Heart Stage Duration Rate BP Comment (mm:ss) (bpm) Baseline 91 142/82Patient denies chest pain Stage 1 3:00 115 142/82Patient denies chest pain Stage 2 3:00 130 144/80Patient denies chest pain Stage 3 3:00 153 136/68Patient complains of leg fatigue and shortness of breath. Denies chest pain Patient denies chest pain or shortness of breath. 2.5 ml total Definity used per Recovery 104 142/86protocol. Stress Duration: 9:00 mm:ss Maximum Stress HR: 153 bpm Baseline Echocardiogram Findings Stress Echo Wall motion Data Resting WM Intermediate WM Stress WM ECHO/Stress Test Echo W/Contrast Interpretation Summary Stress echocardiogram. 54-year-old male with a history of chest pain. Resting EKG demonstrates normal sinus rhythm with a rate of 91 bpm normal inter vals are noted resting blood pressure is 142/82 mmHg. The patient exercised according to the regular Mario protocol for total duration of 9 minutes completing stage III of the Mario protocol the maximum heart rate attained was 153 bpm whi ch was 91% of maximum predicted heart rate the maximum workload was 10.4 metabolic equivalents. At rest there were no ST or T wave changes noted just ischemia and at peak exercise upsloping ST changes were noted in all leads not meeting t he criteria for ischemia except for lead III with downsloping ST depression. No chest pain was noted the test was termin ated due to leg fatigue and shortness of breath. The peak blood pressure was 162/60 mmHg which was a normal blood pressu re response to exercise. Stress echocardiogram. The stress echocardiographic images were performed with Definity enhancement. T he resting echocardiogram demonstrated preserved ejection fraction of 55% with no wall motion abnormalities noted. At peak exercise there was thickening of all amado and reduction of low ventricular cavity size to a peak of 65%. Conclusion: Exercise stress echo with no evidence of ischemia at a high workload. Good functional capacity. Ordering Physician: Devan Alba Referring Physician: Devan Alba Performed By: Adelina Ashby RDCS, RVT
== END | disposition home or self-care (01) ==
LOC: CVS 09:38
PROVIDERS: PCP Family Medicine; Referring Provider Family Medicine; Visit Provider Family Medicine
DX: R94.31 Abnormal electrocardiogram [ECG] [EKG] (principal); R07.9 Chest pain, unspecified
CPT/HCPCS: 93017; 93350; Q9957; A4216; C8928

== ENCOUNTER → 2025-02-20 | Outpatient (CLI) | payer OTHER, SELFPAY ==
[2025-02-20 12:31] LABS: Absolute Lymphocyte Count 2.31 X10^3/uL (0.83-4.51); Absolute Neutrophil Count 5.1 X10^3/uL (2.0-7.7); Basophil# 0.07 X10^3/uL; Basophil% 0.8 % (0-1); Eosinophil# 0.21 X10^3/uL; Eosinophils% 2.5 % (0-5); Hematocrit 48.2 % (40-54); Hemoglobin 16.5 g/dL (13.0-16.5); Lymphocyte # 2.31 X10^3/ul (0.83-4.51); Lymphocyte % 27.7 % (19-41); Mean Corp Hgb Conc 34.2 g/dL (32-36); Mean Corpuscular Hgb 32.5 pg (27.0-32.0); Mean Corpuscular Volume 95.1 fL (80-94); Mean Platelet Vol. 10.4 fl (6.2-12.0); Monocyte# 0.62 X10^3/uL; Monocyte% 7.4 % (0-10); NRBC Flagged by Analyzer 0 % (0-5); Neutrophil # 5.11 X10^3/uL (2.7-7.7); Neutrophil % 61.4 % (47-70); Platelet Count 212 K/mm3 (150-450); RBC Distribution Width CV 13.8 % (11.6-14.6); Red Blood Count 5.07 M/mm3 (4.6-6.2); White Blood Count 8.3 K/mm3 (4.4-11.0)
[2025-02-20 12:44] LABS: Microalbumin,Random Urine < 12.0 mg/L (NO RANGE EST.); Microalbumin:Creatinine Ratio UNABLE TO CALCULATE mg/g CRE
[2025-02-20 12:49] LABS: Hemoglobin A1c 7.7 % (<=5.6)
[2025-02-20 13:15] LABS: ALB/GLOB Ratio 1.5 RATIO (0.9-2.4); AST(SGOT) 32 U/L (<=37); Alanine Aminotransfer ALT/SGPT 33 U/L (<=46); Albumin, Serum 4.4 g/dL (3.5-5.0); Alkaline Phosphatase 58 U/L (40-129); Anion Gap 12 (5-15); BUN 12 mg/dL (4-19); BUN/Creat Ratio 12.5 RATIO (10-20); Calcium,Total 9.9 mg/dL (7.6-11.0); Carbon Dioxide 23.1 mmol/L (21.0-32.0); Chloride 103 mmol/L (98-108); Cholesterol 93 mg/dL (<=200); Creatinine, Serum 0.92 mg/dL (0.70-1.20); EST Glomerular Filtration Rate 99 (>60); Glucose 190 mg/dL (70-99); High Density Lipoprotein 29 mg/dL; Low Density Lipoprotein Calc. 36 mg/dL; PSA,Total - Annual Screen 1.26 ng/mL (0.02-4.00); Potassium 3.9 mmol/L (3.3-5.1); Protein, Total 7.5 g/dL (5.9-8.4); Sodium Level 138 mmol/L (133-145); Total Bilirubin 0.84 mg/dL (0.00-1.30); Triglycerides 138 mg/dL; Very Low Density Lipoprotein 28 mg/dL (5-40); cholesterol:hdl ratio screen 3.21
== END | disposition home or self-care (01) ==
PROVIDERS: PCP Family Medicine; Referring Provider Family Medicine; Visit Provider Family Medicine
DX: Z00.00 Encounter for general adult medical examination without abnormal findings (principal); E11.9 Type 2 diabetes mellitus without complications; E29.1 Testicular hypofunction; E03.9 Hypothyroidism, unspecified; Z12.5 Encounter for screening for malignant neoplasm of prostate
CPT/HCPCS: 36415; 80053; 80061; 82043; 82570; 83036; 84153; 84403; 84443; 85025; G0103